=== PATIENT | female | born 1985 | race Native Hawaiian/Other Pacific Islander ===

== ENCOUNTER 2016-06-29 09:28 | Emergency (ER) | payer OTHER ==
--- NOTE | 2016-06-29 10:19 | ED NURSING NOTES ---
Clinical Report - Nurses [facility] [address] [place] [address] 06/29/2016 9:29 Patient: CHRISTINE LOMAS TRIAGE Triage time 09:39. Acuity: LEVEL 4. Chief Complaint: "FLU", FEVER, SORE THROAT and BODY ACHES and (Temp not measured at home). 09:40 06/29/16. SEPSIS SCREEN: Sepsis Screen. Negative (no infection suspected/documented). BENNY COMA SCORE: Benny Coma Scale: 15- eyes open spontaneously (4); best verbal response- oriented x 4 (5); best motor response- obeys commands (6). --09:46 Russ Mann R.N. 09:39 06/29/16. BP: 118/62. HR: 116. RR: 20. O2 saturation: 98% on room air. Temp: 99.5 F (oral). Pain level now: 02/26. --09:46 Russ Mann R.N. <<STRICKEN ENTRY-- 09:39 06/29/16. BP: 90/24. HR: 116. RR: 20. O2 saturation: 98% on room air. Temp: 99.5 F (oral). Pain level now: 02/26. --09:46 Russ Mann R.N. --END STRIKE>> Correction. --10:20 Russ Mann R.N. Weight: 71.2 kg stated. Height/Length: 60 inches Per Patient. BMI: 30.7. --09:42 Russ Mann R.N. Medications None. --09:41 Russ Mann R.N. Allergies No Known Drug Allergy. --09:41 Russ aMnn R.N. History Arrived by private vehicle. Historian: patient and family. This started yesterday. She has had chills, fatigue, mild abdominal pain and vomiting. No known contact with a sick individual. 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 SOCIAL HX: Former smoker, end date 2011. No alcohol use or drug use. ABUSE ASSESSMENT: No report of abuse. --09:46 Russ Mann R.N. PROBLEMS: Bronchitis. Otitis Media. Influenza. Vaginal Bleeding. Cystitis. UTI - Urinary Tract Infection. Pharyngitis. Fever. Bronchospasm. Pneumonia. Abdominal Pain. Ovarian Cyst. Hematuria. Pyelonephritis. Hemorrhoids. --09:41 Russ Mann R.N. ADDITIONAL SURGERIES: . Tubal Ligation. --09:41 Russ Mann R.N. Interventions ID band on patient. To treatment room. --09:46 Russ Mann R.N. PHYSICAL ASSESSMENT 09:51 06/29/16. Ambulatory to room. GENERAL / NEURO / PSYCH: Alert. Oriented X 4. Appears in pain. HEENT: Pupils equal, round and reactive to light. ( swollen neck glands). Mucous membranes are pink. RESPIRATORY: Respirations not labored. Chest nontender. Breath sounds within normal limits. CVS: Capillary refill less than 2 seconds. Pulses within normal limits. GI / : Abdomen soft and normal bowel sounds. Abdominal tenderness diffusely. SKIN: Skin intact. Skin is warm and dry. Normal skin turgor. --09:51 Russ Mann R.N. NURSING PROGRESS NOTES 09:52 06/29/16. Patient gowned. Head of bed elevated. Reassurance given. Two patient identifiers checked. Call light placed in reach. Bed placed in lowest position. Brakes of bed on. Patient ready for evaluation- chart flagged. --09:52 Russ Mann R.N. 10:25 06/29/2016 Motrin PO Tablets 600 mg given. Allergies verified and confirmed 5 rights. --10:25 Russ Mann R.N. 11:39 06/29/2016 Motrin PO Response: no adverse reaction. --11:39 Russ Mann R.N. DISPOSITION / DISCHARGE 10:40 06/29/16. Departure time: 1040. Condition at departure: unchanged and stable. No learning barriers present. Discharge instructions provided and reviewed with the patient. Reviewed medication(s). Treatments reviewed. Patient verbalized understanding. Written instructions provided in German. The patient was discharged by the physician. She was discharged home and accompanied by instructor physical education. She left the Emergency Department ambulatory and via private vehicle. Quality Review Trainer driving. --10:40 Russ Mann R.N. 10:37 06/29/16. BP: 122/69. HR: 110. RR: 20. O2 saturation: 98% on room air. Temp: 99.5 F (oral). Pain level now: 01/27. --10:40 Russ Mann R.N. Locked/Released at 06/29/2016 11:40 by Russ Mann R.N.
--- NOTE | 2016-06-29 10:19 | ED ORDER SUMMARY ---
..... Patient: CHRISTINE LOMAS OrderSheet [facility] VisitID: [id number] [address] [place] [address] 30y, F Registration Date/Time: 06/29/2016 ORDER SHEET Weight: 71.2 kg (stated) Allergies: No Known Drug Allergy GENERAL ORDERS: Rapid Influenza Screen (Nasal Pharyngeal) (...) Urgent (09:51 06/29/2016 Nolberto Meeks) (Sent 9:57 Nolberto Meeks) Culture, Strep Screen Urgent (09:51 06/29/2016 Nolberto Meeks) (Sent 9:57 Nolberto Meeks) MEDICATION ORDERS: Motrin PO 600 mg (NOW) (10:14 06/29/2016 Nolberto Meeks) (10:25 Ivan Ballesteros) IV FLUIDS: ORDER SHEET NOTES: [Electronically signed by Edgar López Dr. (10:35 06/29/2016)] [Electronically signed by Russ Mann R.N. (11:40 06/29/2016)] [Electronically locked/signed by Russ Mann R.N. (11:40 06/29/2016)]
--- NOTE | 2016-06-29 10:19 | ED CLINICAL REPORT ---
Clinical Report - Physicians/Mid Levels Located Within [facility] [address] [place] [address] 06/29/2016 9:29 Patient: CHRISTINE LOMAS Time Seen: 09:43; initial patient contact. Arrived- By private vehicle. Historian- patient. HISTORY OF PRESENT ILLNESS Chief Complaint: "FLU". This started yesterday and is still present. It was gradual in onset. The patient has had nasal congestion, a sore throat, fever, chills and muscle aches. She has had a nasal discharge. No skin rash, headache, cough, difficulty breathing or nausea. No vomiting, diarrhea or sputum production. No known contact with a sick individual. Similar symptoms previously: None. Recent medical care: Not recently seen/assessed. REVIEW OF SYSTEMS The patient has had fatigue and sinus pain. All systems otherwise negative, except as recorded above. PAST HISTORY Bronchitis. Otitis Media. Influenza. Vaginal Bleeding. Cystitis. UTI - Urinary Tract Infection. Pharyngitis. Fever. Bronchospasm. Pneumonia. Abdominal Pain. Ovarian Cyst. Hematuria. Pyelonephritis. Hemorrhoids. ADDITIONAL SURGERIES: . Tubal Ligation. SOCIAL HISTORY Former smoker. No alcohol use or drug use. ADDITIONAL NOTES The nursing notes have been reviewed with agreement regarding the chief complaint, PMH and patient medications and allergies. PHYSICAL EXAM Vital Signs: 06/29/2016 09:39 BP: 90/24. HR: 116. RR: 20. O2 saturation: 98%. Temp: 99.5 F. Pain level now: 02/26. Have been reviewed and do not appear to be correct. Appearance: Alert. No acute distress. Eyes: Eyes normal inspection. ENT: Moderate generalized pharyngeal erythema with right tonsillar swelling and exudate and left tonsillar swelling and exudate. Tonsillar exudate present. Neck: No lymphadenopathy. CVS: Tachycardia. Heart sounds normal. Normal rhythm. Respiratory: No respiratory distress. Breath sounds normal. Skin: No rash. Neuro: Oriented X 3. LABS, X-RAYS, AND EKG Laboratory Tests: Culture, Strep Screen: (LATOSHA: 06/29/2016 10:00) ( MsgRcvd 06/29/2016 10:13) Final results Test Result Flag Units (Reference) RAPID STREP SCREEN - THROAT CALLED TO: KEESHA HANSEN IN ED -- DATE: 06/29/16 POSITIVE SCREEN: RAPID STREP SCREEN: POSITIVE FOR GROUP A STREP Rapid Influenza Screen: (LATOSHA: 06/29/2016 10:00) ( MsgRcvd 06/29/2016 10:15) Final results SPECIMEN DESCRIPTION: ... Test Result Flag Units (Reference) RAPID INFLUENZA SCREEN DATE: 06/29/16 INFLUENZA A: NEGATIVE SCREEN FOR INFLUENZA A INFLUENZA B: NEGATIVE SCREEN FOR INFLUENZA B . PROGRESS AND PROCEDURES Disposition: Discharged home in good condition. Condition: good. CLINICAL IMPRESSION Acute streptococcal pharyngitis INSTRUCTIONS Prescription Medications: Penicillin V 500 mg: take 1 tab orally every 12 hours for 10 days. Dispense twenty (20). No refills. Follow-up: Follow up with your doctor in about three days if not better. Call for an appointment. Screening today revealed the patient's blood pressure to be in the normal range. (Electronically signed by Edgar López Dr. 06/29/2016 10:35)
--- NOTE | 2016-06-29 10:19 | ED NURSING NOTES ---
Clinical Report - Nurses [facility] [address] [place] [address] 06/29/2016 9:29 Patient: CHRISTINE LOMAS TRIAGE Triage time 09:39. Acuity: LEVEL 4. Chief Complaint: "FLU", FEVER, SORE THROAT and BODY ACHES and (Temp not measured at home). 09:40 06/29/16. SEPSIS SCREEN: Sepsis Screen. Negative (no infection suspected/documented). BENNY COMA SCORE: Benny Coma Scale: 15- eyes open spontaneously (4); best verbal response- oriented x 4 (5); best motor response- obeys commands (6). --09:46 Russ Mann R.N. 09:39 06/29/16. BP: 118/62. HR: 116. RR: 20. O2 saturation: 98% on room air. Temp: 99.5 F (oral). Pain level now: 02/26. --09:46 Russ Mann R.N. <<STRICKEN ENTRY-- 09:39 06/29/16. BP: 90/24. HR: 116. RR: 20. O2 saturation: 98% on room air. Temp: 99.5 F (oral). Pain level now: 02/26. --09:46 Russ Mann R.N. --END STRIKE>> Correction. --10:20 Russ Mann R.N. Weight: 71.2 kg stated. Height/Length: 60 inches Per Patient. BMI: 30.7. --09:42 Russ Mann R.N. Medications None. --09:41 Russ Mann R.N. Allergies No Known Drug Allergy. --09:41 Russ Mann R.N. History Arrived by private vehicle. Historian: patient and family. This started yesterday. She has had chills, fatigue, mild abdominal pain and vomiting. No known contact with a sick individual. 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 SOCIAL HX: Former smoker, end date 2011. No alcohol use or drug use. ABUSE ASSESSMENT: No report of abuse. --09:46 Russ Mann R.N. PROBLEMS: Bronchitis. Otitis Media. Influenza. Vaginal Bleeding. Cystitis. UTI - Urinary Tract Infection. Pharyngitis. Fever. Bronchospasm. Pneumonia. Abdominal Pain. Ovarian Cyst. Hematuria. Pyelonephritis. Hemorrhoids. --09:41 Russ Mann R.N. ADDITIONAL SURGERIES: . Tubal Ligation. --09:41 Russ Mann R.N. Interventions ID band on patient. To treatment room. --09:46 Russ Mann R.N. PHYSICAL ASSESSMENT 09:51 06/29/16. Ambulatory to room. GENERAL / NEURO / PSYCH: Alert. Oriented X 4. Appears in pain. HEENT: Pupils equal, round and reactive to light. ( swollen neck glands). Mucous membranes are pink. RESPIRATORY: Respirations not labored. Chest nontender. Breath sounds within normal limits. CVS: Capillary refill less than 2 seconds. Pulses within normal limits. GI / : Abdomen soft and normal bowel sounds. Abdominal tenderness diffusely. SKIN: Skin intact. Skin is warm and dry. Normal skin turgor. --09:51 Russ Mann R.N. NURSING PROGRESS NOTES 09:52 06/29/16. Patient gowned. Head of bed elevated. Reassurance given. Two patient identifiers checked. Call light placed in reach. Bed placed in lowest position. Brakes of bed on. Patient ready for evaluation- chart flagged. --09:52 Russ Mann R.N. 10:25 06/29/2016 Motrin PO Tablets 600 mg given. Allergies verified and confirmed 5 rights. --10:25 Russ Mann R.N. 11:39 06/29/2016 Motrin PO Response: no adverse reaction. --11:39 Russ Mann R.N. DISPOSITION / DISCHARGE 10:40 06/29/16. Departure time: 1040. Condition at departure: unchanged and stable. No learning barriers present. Discharge instructions provided and reviewed with the patient. Reviewed medication(s). Treatments reviewed. Patient verbalized understanding. Written instructions provided in Ukrainian. The patient was discharged by the physician. She was discharged home and accompanied by rib cloth knitter. She left the Emergency Department ambulatory and via private vehicle. Bench Worker Apprentice driving. --10:40 Russ Mann R.N. 10:37 06/29/16. BP: 122/69. HR: 110. RR: 20. O2 saturation: 98% on room air. Temp: 99.5 F (oral). Pain level now: 01/27. --10:40 Russ Mann R.N. Locked/Released at 06/29/2016 11:40 by Russ Mann R.N.
--- NOTE | 2016-06-29 10:19 | ED ORDER SUMMARY ---
..... Patient: CHRISTINE LOMAS OrderSheet [facility] VisitID: [id number] [address] [place] [address] 30y, F Registration Date/Time: 06/29/2016 ORDER SHEET Weight: 71.2 kg (stated) Allergies: No Known Drug Allergy GENERAL ORDERS: Rapid Influenza Screen (Nasal Pharyngeal) (...) Urgent (09:51 06/29/2016 Nolberto Meeks) (Sent 9:57 Nolberto Meeks) Culture, Strep Screen Urgent (09:51 06/29/2016 Nolberto Meeks) (Sent 9:57 Nolberto Meeks) MEDICATION ORDERS: Motrin PO 600 mg (NOW) (10:14 06/29/2016 Nolberto Meeks) (10:25 Ivan Ballesteros) IV FLUIDS: ORDER SHEET NOTES: [Electronically signed by Edgar López Dr. (10:35 06/29/2016)] [Electronically signed by Russ Mann R.N. (11:40 06/29/2016)] [Electronically locked/signed by Russ Mann R.N. (11:40 06/29/2016)]
--- NOTE | 2016-06-29 11:41 | ED MED RECONCILIATION SUMMARY ---
Patient: CHRISTINE LOMAS Medication Reconciliation Report [facility] VisitID: [id number] [place] [address] 30y, F Registration Date/Time: 06/29/2016 Weight: 71.2 kg Height/Length: 60 in. BMI: 30.7 ALLERGIES: No Known Drug Allergy The patient's Home Medications are listed below: NONE. The source(s) of the original Home Medication information: Not obtained. The following Medications were given to the patient in the Emergency Department: Motrin [PO] PO 600 mg, administered: 06/29/2016 10:25:00 AM The following Medications were prescribed to the patient: Penicillin V 500 mg: take 1 tab orally every 12 hours for 10 days. Dispense twenty (20). No refills. -- Edgar López Dr.
--- NOTE | 2016-06-29 11:41 | ED MED RECONCILIATION SUMMARY ---
Patient: CHRISTINE LOMAS Medication Reconciliation Report VisitID: [id number] [place] [address] 30y, F Registration Date/Time: 06/29/2016 Weight: 71.2 kg Height/Length: 60 in. BMI: 30.7 ALLERGIES: No Known Drug Allergy The patient's Home Medications are listed below: NONE. The source(s) of the original Home Medication information: Not obtained. The following Medications were given to the patient in the Emergency Department: Motrin [PO] PO 600 mg, administered: 06/29/2016 10:25:00 AM The following Medications were prescribed to the patient: Penicillin V 500 mg: take 1 tab orally every 12 hours for 10 days. Dispense twenty (20). No refills. -- Edgar López Dr.
--- NOTE | 2016-06-29 11:41 | ED MAR SUMMARY ---
..... Medication Administration Record [facility] [address] [place] [address] Patient: CHRISTINE LOMAS Visit ID: [id number] 30y, F Weight: 71.2 kg Height/Length: 60 in BMI: 30.7 ALLERGIES: No Known Drug Allergy Given 10:25 06/29/2016 Russ Mann R.N. Medication Administered: MOTRIN [PO], Dose: 600 mg Tablets PO. Medication Ordered: Motrin PO 600 mg (NOW).
--- NOTE | 2016-06-29 11:41 | ED DISCHARGE INSTRUCTIONS ---
Patient: CHRISTINE LOMAS General Instructions [facility] VisitID: [id number] [place] [address] 30y, F Registration Date/Time: 06/29/2016 Acute streptococcal pharyngitis INSTRUCTIONS Prescription Medications: Penicillin V 500 mg: take 1 tab orally every 12 hours for 10 days. Dispense twenty (20). No refills. Follow-up: Follow up with your doctor in about three days if not better. Call for an appointment. Screening today revealed the patient's blood pressure to be in the normal range. ADDITIONAL INFORMATION Pharyngitis: Strep [Confirmed] Your test for strep throat was positive. Strep throat is a contagious illness. It is spread by coughing, kissing or by touching others after touching your mouth or nose. Symptoms include throat pain which is worse with swallowing, aching all over, headache and fever. You will be treated with an antibiotic which should make you start to feel better within 1-2 days. Home Care: Rest at home and drink plenty of fluids to avoid dehydration. No school or work for the first two days on antibiotics. You will not be contagious after this time and if you are feeling better, you can return to school or work. Take your antibiotics for a full 10 days, even if you feel better after the first few days of treatment. This is very important to prevent heart or kidney disease that can result as a complication of untreated strep throat infection. Children: Use acetaminophen (Tylenol) for fever, fussiness or discomfort. In infants over six months of age, you may use ibuprofen (Children's Motrin) instead of Tylenol. [NOTE: If your child has chronic liver or kidney disease or ever had a stomach ulcer or GI bleeding, talk with your doctor before using these medicines.] (Aspirin should never be used in anyone under 18 years of age who is ill with a fever. It may cause severe liver damage.)Adults: You may use acetaminophen (Tylenol) or ibuprofen (Motrin, Advil) to control pain or fever, unless another medicine was prescribed for this. [NOTE: If you have chronic liver or kidney disease or ever had a stomach ulcer or GI bleeding, talk with your doctor before using these medicines.] Throat lozenges or sprays (Chloraseptic and others) will reduce pain. Gargling with warm salt water will also reduce throat pain. Dissolve 1/2 teaspoon of salt in 1 glass of warm water. This is especially useful just before meals. Follow Up with your doctor or as directed by our staff if you are not improving over the next week. Get Prompt Medical Attention if any of the following occur: Fever of 100.4F (38C) oral or higher, not better with fever medication New or worsening ear pain, sinus pain or headache Painful lumps in the back of your neck Unable to swallow liquids or open your mouth wide due to throat pain Trouble breathing or noisy breathing Muffled voice New rash Penicillin V Potassium Oral tablet What is this medicine? PENICILLIN V (pen i SILL in V) is a penicillin antibiotic. It is used to treat certain kinds of bacterial infections. It will not work for colds, flu, or other viral infections. How should I use this medicine? Take this medicine by mouth with a full glass of water. Follow the directions on the prescription label. Take your medicine at regular intervals. Do not take your medicine more often than directed. Take all of your medicine as directed even if you think your are better. Do not skip doses or stop your medicine early. Talk to your renal social worker regarding the use of this medicine in children. While this drug may be prescribed for selected conditions, precautions do apply. What side effects may I notice from receiving this medicine? Side effects that you should report to your doctor or health behavioral health care manager as soon as possible: allergic reactions like skin rash or hives, swelling of the face, lips, or tongue breathing problems fever new symptoms of infection redness, blistering, peeling or loosening of the skin, including inside the mouth unusually weak or tired Side effects that usually do not require medical attention (report to your doctor or health behavioral health care manager if they continue or are bothersome): diarrhea headache nausea, vomiting sore mouth or tongue stomach upset What may interact with this medicine? control pills methotrexate other antibiotics probenecid some vaccines What if I miss a dose? If you miss a dose, take it as soon as you can. If it is almost time for your next dose, take only that dose. Do not take double or extra doses. Where should I keep my medicine? Keep out of the reach of children. Store at room temperature between 15 and 30 degrees C (59 and 86 degrees F). Keep container tightly closed. Throw away any unused medicine after the expiration date. What should I tell my health care provider before I take this medicine? They need to know if you have any of these conditions: asthma bowel disease, like colitis eczema kidney disease an unusual or allergic reaction to penicillin, cephalosporins, other antibiotics or medicines, foods, tartrazine or other dyes, or preservatives or trying to get breast-feeding What should I watch for while using this medicine? Tell your doctor or health behavioral health care manager if your symptoms do not improve. Do not treat diarrhea with over the counter products. Contact your doctor if you have diarrhea that lasts more than 2 days or if it is severe and watery. If you have diabetes, you may get a false-positive result for sugar in your urine. Check with your doctor or health behavioral health care manager. control pills may not work properly while you are taking this medicine. Talk to your doctor about using an extra method of control. You have been given the following additional information: Pharyngitis, Strep (Confirmed) Penicillin V Potassium Oral tablet (Electronically signed by Edgar López Dr. 06/29/2016 10:35)
--- NOTE | 2016-06-29 11:41 | ED MAR SUMMARY ---
..... Medication Administration Record [facility] [address] [place] [address] Patient: CHRISTINE LOMAS Visit ID: [id number] 30y, F Weight: 71.2 kg Height/Length: 60 in BMI: 30.7 ALLERGIES: No Known Drug Allergy Given 10:25 06/29/2016 Russ Mann R.N. Medication Administered: MOTRIN [PO], Dose: 600 mg Tablets PO. Medication Ordered: Motrin PO 600 mg (NOW).
--- NOTE | 2016-06-29 11:41 | ED DISCHARGE INSTRUCTIONS ---
Patient: CHRISTINE LOMAS General Instructions [facility] VisitID: [id number] [place] [address] 30y, F Registration Date/Time: 06/29/2016 Acute streptococcal pharyngitis INSTRUCTIONS Prescription Medications: Penicillin V 500 mg: take 1 tab orally every 12 hours for 10 days. Dispense twenty (20). No refills. Follow-up: Follow up with your doctor in about three days if not better. Call for an appointment. Screening today revealed the patient's blood pressure to be in the normal range. ADDITIONAL INFORMATION Pharyngitis: Strep [Confirmed] Your test for strep throat was positive. Strep throat is a contagious illness. It is spread by coughing, kissing or by touching others after touching your mouth or nose. Symptoms include throat pain which is worse with swallowing, aching all over, headache and fever. You will be treated with an antibiotic which should make you start to feel better within 1-2 days. Home Care: Rest at home and drink plenty of fluids to avoid dehydration. No school or work for the first two days on antibiotics. You will not be contagious after this time and if you are feeling better, you can return to school or work. Take your antibiotics for a full 10 days, even if you feel better after the first few days of treatment. This is very important to prevent heart or kidney disease that can result as a complication of untreated strep throat infection. Children: Use acetaminophen (Tylenol) for fever, fussiness or discomfort. In infants over six months of age, you may use ibuprofen (Children's Motrin) instead of Tylenol. [NOTE: If your child has chronic liver or kidney disease or ever had a stomach ulcer or GI bleeding, talk with your doctor before using these medicines.] (Aspirin should never be used in anyone under 18 years of age who is ill with a fever. It may cause severe liver damage.)Adults: You may use acetaminophen (Tylenol) or ibuprofen (Motrin, Advil) to control pain or fever, unless another medicine was prescribed for this. [NOTE: If you have chronic liver or kidney disease or ever had a stomach ulcer or GI bleeding, talk with your doctor before using these medicines.] Throat lozenges or sprays (Chloraseptic and others) will reduce pain. Gargling with warm salt water will also reduce throat pain. Dissolve 1/2 teaspoon of salt in 1 glass of warm water. This is especially useful just before meals. Follow Up with your doctor or as directed by our staff if you are not improving over the next week. Get Prompt Medical Attention if any of the following occur: Fever of 100.4F (38C) oral or higher, not better with fever medication New or worsening ear pain, sinus pain or headache Painful lumps in the back of your neck Unable to swallow liquids or open your mouth wide due to throat pain Trouble breathing or noisy breathing Muffled voice New rash Penicillin V Potassium Oral tablet What is this medicine? PENICILLIN V (pen i SILL in V) is a penicillin antibiotic. It is used to treat certain kinds of bacterial infections. It will not work for colds, flu, or other viral infections. How should I use this medicine? Take this medicine by mouth with a full glass of water. Follow the directions on the prescription label. Take your medicine at regular intervals. Do not take your medicine more often than directed. Take all of your medicine as directed even if you think your are better. Do not skip doses or stop your medicine early. Talk to your sow farm technician regarding the use of this medicine in children. While this drug may be prescribed for selected conditions, precautions do apply. What side effects may I notice from receiving this medicine? Side effects that you should report to your doctor or health day care home provider as soon as possible: allergic reactions like skin rash or hives, swelling of the face, lips, or tongue breathing problems fever new symptoms of infection redness, blistering, peeling or loosening of the skin, including inside the mouth unusually weak or tired Side effects that usually do not require medical attention (report to your doctor or health day care home provider if they continue or are bothersome): diarrhea headache nausea, vomiting sore mouth or tongue stomach upset What may interact with this medicine? control pills methotrexate other antibiotics probenecid some vaccines What if I miss a dose? If you miss a dose, take it as soon as you can. If it is almost time for your next dose, take only that dose. Do not take double or extra doses. Where should I keep my medicine? Keep out of the reach of children. Store at room temperature between 15 and 30 degrees C (59 and 86 degrees F). Keep container tightly closed. Throw away any unused medicine after the expiration date. What should I tell my health care provider before I take this medicine? They need to know if you have any of these conditions: asthma bowel disease, like colitis eczema kidney disease an unusual or allergic reaction to penicillin, cephalosporins, other antibiotics or medicines, foods, tartrazine or other dyes, or preservatives or trying to get breast-feeding What should I watch for while using this medicine? Tell your doctor or health day care home provider if your symptoms do not improve. Do not treat diarrhea with over the counter products. Contact your doctor if you have diarrhea that lasts more than 2 days or if it is severe and watery. If you have diabetes, you may get a false-positive result for sugar in your urine. Check with your doctor or health day care home provider. control pills may not work properly while you are taking this medicine. Talk to your doctor about using an extra method of control. You have been given the following additional information: Pharyngitis, Strep (Confirmed) Penicillin V Potassium Oral tablet (Electronically signed by Edgar López Dr. 06/29/2016 10:35)
== END 2016-06-29 10:40 | disposition home or self-care (01) ==
LOC: ED SRH 09:28
DX: J02.0 Streptococcal pharyngitis (principal)
CPT/HCPCS: 90154; 91400